=== PATIENT | male | born 1960 | race Caucasian/White ===

== ENCOUNTER 2020-02-02 09:42 | Outpatient (CLI) | payer BC ==
[2020-02-02] MEDS ORDERED: Magnevist 469MG/ML 20 ML VIAL ONE (11:10)
--- NOTE | 2020-02-02 14:30 | MRI ---
MRI brain with and without contrast: (Cranial nerve protocol) 02/02/2020 HISTORY: 59-year-old male with persistent trigeminal neuralgia on the right side G 50.0 COMPARISON: 04/19/2017. 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 This may be related to the fact that the posterior fossa is somewhat distorted on a developmental basis, with some crowding. The straight sinus has been flattened such that it is almost horizontal in the AP dimension, along with the horizontal orientation of the tentorium cere yaquelin. The prepontine cistern is narrowed. 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 It is uncertain whether this developmental crowding of extra-axial spaces in the po sterior fossa contributes to the trigeminal neuralgia. Again noted is the right AICA in close proximity to the root entry zone of the right trigeminal nerve of the hussein. It is now noted that the vessel lateral to it, abutting the lateral surface of the right trigeminal nerve very close to the root entry zone, is probably not the AICA. It is uncertain whether this is another artery or vein. Th is appearance has not changed. The trigones and occipital horns of the lateral ventricles bilaterally are slightly prominent, probably related to the hypogenesis of the corpus callosum. No ma ss effect, midline shift, or extra-axial fluid collection. Again noted is the trapped fluid in pneumatized right petrous apical air cells. No abnormal enhancement or mass in Meckel's caves, orbita l apices, cavernous sinuses, foramina rotunda, or foramina ovale. No restricted diffusion in the brain. No abnormal intra-axial enhancement. Minimal chronic ischemic white matter changes. Enhancement with polypoid mucosal structures in the nasal cavity and bilateral ethmoid air cells. No mastoid effusion. No nasopharyngeal tumor mass. No evidence of perineural spread of tumor at the pterygopalatine fossa bilaterally. No interval change overall. IMPRESSION: 1.) Equivocal findings regarding blood vessels in close proximity to the root entry zone of the right trigeminal nerve. 2) paranasal sinus mucosal disease. 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 4) no interval change overall.
== END 2020-02-02 09:43 | disposition home or self-care (01) ==
LOC: TBSIIMAG 09:42
PROVIDERS: ATTEND Psychiatry & Neurology Neurology
DX: G50.0 Trigeminal neuralgia (principal); J32.9 Chronic sinusitis, unspecified; G93.89 Other specified disorders of brain
CPT/HCPCS: 70553; A9579

== ENCOUNTER 2020-03-25 15:37 | Outpatient (CLI) | payer BC ==
[2020-03-26 14:56] LABS: SARS-CoV-2 MS2 Positive; SARS-CoV-2 N Gene Negative; SARS-CoV-2 S Gene Negative; SARS-CoV-2 by NAA Not Detected (NotDetected); SARS-CoV-2 orf1ab Negative
== END 2020-03-25 15:38 | disposition home or self-care (01) ==
LOC: ER/OP 15:37
PROVIDERS: ATTEND Emergency Medicine
DX: Z20.828 Contact with and (suspected) exposure to other viral communicable diseases (principal)
CPT/HCPCS: 87635; U0003

== ENCOUNTER 2022-08-03 10:14 | Day surgery (SDC) | payer BC ==
[2022-08-01 10:34] VITALS: BMI 26.7
[2022-08-03] MEDS ORDERED: Bupivacaine HCl 0.5%/Epinephrine 1:200,000/PF 30 ml Vial ONE (11:01)
[2022-08-03] MEDS ORDERED: Dexamethasone 4 mg/ml Vial ONE (11:01)
[2022-08-03] MEDS ORDERED: Midazolam HCl 2 mg/2 ml Vial ONE (11:07)
[2022-08-03] MEDS ORDERED: fentaNYL PF 100 MCG/2 ML SYRINGE ONE (11:08)
[2022-08-03] MEDS ORDERED: Sodium Chloride 0.9% 100 ML ONE (11:21)
[2022-08-03] MEDS ORDERED: CEFAZOLIN 2 GM VIAL ONE (11:21)
[2022-08-03] MEDS ORDERED: Dexamethasone 20 MG/5 ML VIAL ONE (11:37)
[2022-08-03] MEDS ORDERED: PROPOFOL 200 MG/20 ML VIAL ONE (11:37)
[2022-08-03] MEDS ORDERED: Lidocaine 1% PF 5 ML VIAL ONE (11:37)
[2022-08-03] MEDS ORDERED: Ondansetron PF 4 MG/2 ML Vial ONE (11:37)
[2022-08-03] MEDS ORDERED: HYDROcodone/Acetaminophen 5/325 mg Tablet ONE (13:22)
== END 2022-08-03 13:55 | disposition home or self-care (01) ==
LOC: SDC 10:14
PROVIDERS: ATTEND Thoracic Surgery (Cardiothoracic Vascular Surgery)
PROC: 0WQF0ZZ Repair Abdominal Wall, Open Approach (ICD-10-PCS; principal; 2022-08-03)
DX: K42.9 Umbilical hernia without obstruction or gangrene (principal); Z79.811 Long term (current) use of aromatase inhibitors; Z79.84 Long term (current) use of oral hypoglycemic drugs; Z79.85 Long-term (current) use of injectable non-insulin antidiabetic drugs; Z79.899 Other long term (current) drug therapy
CPT/HCPCS: J1100; J2250; J2405; J2704; J3490

== ENCOUNTER 2024-04-30 11:56 | Emergency (ER) | payer BC, OTHER ==
[2024-04-30] MEDS ORDERED: Acetaminophen 325 MG TAB ONE (12:31)
[2024-04-30] MEDS ORDERED: Sodium Chloride 0.9% 100 ML ONE (12:31)
[2024-04-30] MEDS ORDERED: CEFAZOLIN 2 GM VIAL ONE (12:31)
[2024-04-30] MEDS ORDERED: Fluorescein Opthalmic Strip ONE (12:33)
[2024-04-30] MEDS ORDERED: Proparacaine 0.5% Opth 15 ML BOT ONE (12:34)
[2024-04-30] MEDS ORDERED: Lidocaine 1% PF 5 ML VIAL ONE (13:54)
== END 2024-04-30 14:41 | disposition home or self-care (01) ==
LOC: ERS 11:56
DX: S52.612A Displaced fracture of left ulna styloid process, initial encounter for closed fracture (principal); S05.02XA Injury of conjunctiva and corneal abrasion without foreign body, left eye, initial encounter; E11.9 Type 2 diabetes mellitus without complications; I10 Essential (primary) hypertension; V89.2XXA Person injured in unspecified motor-vehicle accident, traffic, initial encounter
CPT/HCPCS: 29125; 70450; 71045; 72128; 96365

== ENCOUNTER 2024-08-14 11:27 | Emergency (ER) | payer BC, OTHER ==
[2024-08-14] MEDS ORDERED: Acetaminophen 500 MG TAB ONE (13:08)
== END 2024-08-14 13:23 | disposition home or self-care (01) ==
LOC: ERS 11:27
DX: M54.50 Low back pain, unspecified (principal); S00.83XA Contusion of other part of head, initial encounter; M25.561 Pain in right knee; I10 Essential (primary) hypertension; V49.9XXA Car occupant (driver) (passenger) injured in unspecified traffic accident, initial encounter
CPT/HCPCS: 70450; 72100